=== PATIENT | female | born 2000 | race Hispanic/Latino ===

== ENCOUNTER 2018-09-07 09:26 | Emergency (ER) | payer SELFPAY ==
--- NOTE | 2018-09-07 10:40 | ER ---
Nurse's Notes [facility] Name: Brittany Concepcion Age: 17 yrs Sex: Female : 2000 Arrival Date: 09/07/2018 Time: 09:30 Bed 17 Private MD: Diagnosis: Otitis externa in other diseases classified elsewhere, right ear Presentation: 09/07 09:44 Presenting complaint: Patient states: "both of my ears have been draining for about a aa5 week but today my right ear hurts and I can't hear out of it". Transition of care: patient was not received from another setting of care. Onset of symptoms was September 07, 2018. Risk Assessment: Do you want to hurt yourself or someone else? Patient reports no desire to harm self or others. Initial Sepsis Screen: Does the patient meet any 2 criteria? No. Patient's initial sepsis screen is negative. Does the patient have a suspected source of infection? No. Patient's initial sepsis screen is negative. Care prior to arrival: None. 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 - Social history:: Smoking status: Patient/guardian denies using tobacco. - Ebola Screening: : No symptoms or risks identified at this time. Screenin:46 Abuse screen: Denies threats or abuse. Nutritional screening: No deficits noted. aa5 Tuberculosis screening: No symptoms or risk factors identified. Fall Risk None identified. Assessment: 09:46 General: Appears comfortable, Behavior is calm, cooperative. Pain: Complains of pain in aa5 right ear Pain does not radiate. Pain currently is 7 out of 10 on a pain scale. Quality of pain is described as aching, throbbing, Pain began this morning Is continuous. Neuro: Level of Consciousness is awake, alert, obeys commands, Oriented to person, place, time, situation. Cardiovascular: Heart tones S1 S2 present Rhythm is regular. Respiratory: Airway is patent Respiratory effort is even, unlabored, Respiratory pattern is regular, symmetrical. GI: No signs and/or symptoms were reported involving the gastrointestinal system. : No signs and/or symptoms were reported regarding the genitourinary system. EENT: Reports pain in right ear elayne ear drainage . Derm: Skin is pink, warm \\T\\ dry. Musculoskeletal: Range of motion: intact in all extremities. 11:15 Reassessment: Patient is alert, oriented x 3, equal unlabored respirations, skin aa5 warm/dry/pink. Vital Signs: 09:45 BP 111 / 76; Pulse 85; Resp 16 S; Temp 99.6(O); Pulse Ox 100% on R/A; Weight 43.09 kg aa5 (R); Height 5 ft. 2 in. (157.48 cm) (R); Pain 7/10; 09:45 Body Mass Index 17.38 (43.09 kg, 157.48 cm) aa5 ED Course: 09:30 Patient arrived in ED. mr 09:40 Lena Pulido RN is Primary Nurse. aa5 09:44 Arm band placed on Patient placed in an exam room, on a stretcher. aa5 09:44 Patient has correct armband on for positive identification. Bed in low position. Call aa5 light in reach. Side rails up X 1. 09:45 Triage completed. aa5 10:28 Bartolo Botello PA is PHCP. cp 10:28 Hemant Amaya MD is Attending Physician. cp 10:39 Latha Isaac MD is Referral Physician. cp 11:22 No provider procedures requiring assistance completed. Patient did not have IV access dm5 during this emergency room visit. Administered Medications: No medications were administered Outcome: 10:40 Discharge ordered by . cp 11:22 Discharged to home ambulatory. dm5 11:22 Condition: good 11:22 Discharge instructions given to patient, Instructed on discharge instructions, follow up and referral plans. medication usage, Demonstrated understanding of instructions, follow-up care, medications, Prescriptions given X 1. 11:23 Patient left the ED. dm5 Signatures: Gracia Gayle RN RN dm5 LewElvia mr Lena Pulido RN RN aa5 Bartolo Botello PA PA cp
--- NOTE | 2018-09-07 10:40 | EDPHYS ---
Physician Documentation [facility] Name: Brittany Concepcion Age: 17 yrs Sex: Female : 2000 Arrival Date: 09/07/2018 Time: 09:30 Bed 17 Private MD: ED Physician Hemant Amaya HPI: 09/07 10:34 This 17 yrs old Female presents to ER via Ambulatory with complaints of Ear cp Pain. 10:34 The patient presents with drainage, hearing loss, partial, pain. The complaints affect cp the right ear. Onset: The symptoms/episode began/occurred today. Associated signs and symptoms: Pertinent negatives: cough, fever, rhinorrhea, sinus trouble, sore throat. Severity of symptoms: in the emergency department the symptoms are unchanged despite home interventions. 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 - Social history:: Smoking status: Patient/guardian denies using tobacco. - Ebola Screening: : No symptoms or risks identified at this time. ROS: 10:34 Eyes: Negative for injury, pain, redness, and discharge. cp 10:34 Constitutional: Negative for body aches, chills, fever, poor PO intake. 10:34 ENT: Positive for drainage from ear(s), ear pain, hearing loss, Negative for sore throat, difficulty swallowing, difficulty handling secretions. 10:34 Respiratory: Negative for cough, shortness of breath, wheezing. 10:34 Abdomen/GI: Negative for abdominal pain, nausea, vomiting, and diarrhea. 10:34 Skin: Negative for cellulitis, rash. 10:34 Neuro: Negative for headache. 10:34 All other systems are negative. Exam: 10:36 Head/Face: Normocephalic, atraumatic. cp 10:36 Constitutional: The patient appears in no acute distress, alert, awake, non-toxic, well developed, well nourished. 10:36 Eyes: Periorbital structures: appear normal, Conjunctiva: normal, no exudate, no injection, Lids and lashes: appear normal, bilaterally. 10:36 ENT: External ear(s): pain with movement, that is mild, of the right ear canal, Ear canal(s): purulent discharge, that is minimal, in the right canal, TM's: dullness, bilaterally, Nose: is normal, Mouth: Lips: moist, Oral mucosa: pink and intact, moist, Posterior pharynx: Airway: no evidence of obstruction, patent, Voice: is normal. 10:36 Neck: ROM/movement: is normal, is supple, without pain, no range of motions limitations, no nuchal rigidity. 10:36 Chest/axilla: Inspection: normal. 10:36 Cardiovascular: Rate: normal, Rhythm: regular. 10:36 Respiratory: the patient does not display signs of respiratory distress, Respirations: normal, no use of accessory muscles, no retractions, no splinting, no tachypnea. 10:36 Skin: cellulitis, is not appreciated, no rash present. Vital Signs: 09:45 BP 111 / 76; Pulse 85; Resp 16 S; Temp 99.6(O); Pulse Ox 100% on R/A; Weight 43.09 kg aa5 (R); Height 5 ft. 2 in. (157.48 cm) (R); Pain 7/10; 09:45 Body Mass Index 17.38 (43.09 kg, 157.48 cm) aa5 MDM: 10:28 Patient medically screened. cp 10:39 Differential diagnosis: otitis media, otitis externa, ruptured TM, foreign body, cp cerumen impaction. Data reviewed: vital signs, nurses notes, and as a result, I will continue to observe the patient. Administered Medications: No medications were administered Disposition: 12:59 Co-signature as Attending Physician, Hemant Amaya MD I agree with the assessment and kdr plan of care. Disposition: 09/07/18 10:40 Discharged to Home. Impression: Otitis externa in other diseases classified elsewhere, right ear. - Condition is Stable. - Discharge Instructions: Otitis Externa. - Prescriptions for Cortisporin- TC 3.3-3-10-0.5 mg/mL Otic Drops, Suspension - instill 4 drops by OTIC route every 6 hours instill drops in affected ear as directed; 1 bottle. - Medication Reconciliation Form, Thank You Letter, Antibiotic Education, Prescription Opioid Use form. - Follow up: Latha Isaac MD; When: 1 week; Reason: symptoms continue. - Problem is new. - Symptoms are unchanged. Signatures: Gracia Gayle RN RN dm5 Hemant Amaya MD MD kdr Lena Pulido RN RN aa5 Bartolo Botello, PA PA cp Corrections: (The following items were deleted from the chart) 11:23 10:40 09/07/2018 10:40 Discharged to Home. Impression: Otitis externa in other diseases dm5 classified elsewhere, right ear. Condition is Stable. Forms are Medication Reconciliation Form, Thank You Letter, Antibiotic Education, Prescription Opioid Use. Follow up: Latha Isaac; When: 1 week; Reason: symptoms continue. Problem is new. Symptoms are unchanged. cp
== END 2018-09-07 11:23 | disposition home or self-care (01) ==
LOC: ER 09:26
DX: H60.91 Unspecified otitis externa, right ear (principal)
CPT/HCPCS: 99282

== ENCOUNTER 2019-04-07 01:10 | Emergency (ER) | payer OTHER, SELFPAY ==
--- NOTE | 2019-04-07 01:38 | ER ---
Nurse's Notes [facility] Name: Brittany Concepcion Age: 18 yrs Sex: Female : 2000 Arrival Date: 04/07/2019 Time: 01:14 Bed 16 Private MD: Diagnosis: Otitis media, unspecified, right ear Presentation: 04/07 01:33 Presenting complaint: Patient states: I started having an earache on the right side tl1 about 1 hour ago. I swam last week in the river. Transition of care: patient was not received from another setting of care. Onset of symptoms was April 07, 2019. Risk Assessment: Do you want to hurt yourself or someone else? Patient reports no desire to harm self or others. Initial Sepsis Screen: Does the patient meet any 2 criteria? No. Patient's initial sepsis screen is negative. Does the patient have a suspected source of infection? No. Patient's initial sepsis screen is negative. Care prior to arrival: None. 01:33 Method Of Arrival: Ambulatory tl1 01:33 Acuity: GLORIA 4 tl1 Triage Assessment: 01:27 General: Appears in no apparent distress. comfortable, Behavior is calm, cooperative, cc3 appropriate for age. Pain: Complains of pain in right ear. EENT: Reports pain in right ear. 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 - Social history:: Smoking status: Patient/guardian denies using tobacco, never smoked. - Ebola Screening: : Patient negative for fever greater than or equal to 101.5 degrees Fahrenheit, and additional compatible Ebola Virus Disease symptoms Patient denies exposure to infectious person Patient denies travel to an Ebola-affected area in the 21 days before illness onset. Screenin:27 Abuse screen: Denies threats or abuse. Denies injuries from another. Nutritional cc3 screening: No deficits noted. Tuberculosis screening: No symptoms or risk factors identified. Fall Risk Ambulatory Aid- None/Bed Rest/Nurse Assist (0 pts). Gait- Normal/Bed Rest/Wheelchair (0 pts) Mental Status- Oriented to own ability (0 pts). Assessment: 01:27 General: Appears in no apparent distress. comfortable, Behavior is calm, cooperative, cc3 appropriate for age. Pain: Complains of pain in right ear. Neuro: Level of Consciousness is awake, alert, obeys commands, Oriented to person, place, time, situation, Appropriate for age. Cardiovascular: Denies chest pain, Capillary refill < 3 seconds Patient's skin is warm and dry. Respiratory: Airway is patent Respiratory effort is even, unlabored, Respiratory pattern is regular, symmetrical. GI: Abdomen is flat. : No signs and/or symptoms were reported regarding the genitourinary system. EENT: Reports pain in right ear. Derm: Skin is intact, is healthy with good turgor, Skin is pink, warm \T\ dry. normal. Musculoskeletal: Circulation, motion, and sensation intact. Range of motion: intact in all extremities. 01:55 Reassessment: Patient appears in no apparent distress at this time. Patient and/or cc3 family updated on plan of care and expected duration. Pain level reassessed. Patient is alert, oriented x 3, equal unlabored respirations, skin warm/dry/pink. ANASTASIA Botello discharged the patient home with prescription given. No IV cannula in situ. Patient left ER vitally stable and ambulatory with her friend. No valuables left in the patient's room. Patient denies pain at this time. Patient states feeling better. Patient states symptoms have improved. Vital Signs: 01:35 BP 116 / 77; Pulse 89; Resp 17; Temp 98.5; Pulse Ox 100% ; Weight 53.52 kg; Height 5 tl1 ft. 2 in. (157.48 cm); Pain 6/10; 01:35 Body Mass Index 21.58 (53.52 kg, 157.48 cm) tl1 ED Course: 01:14 Patient arrived in ED. mr 01:23 Bartolo Botello PA is PHCP. cp 01:23 Igor Rachel MD is Attending Physician. cp 01:27 Aurelia Baptiste is Primary Nurse. cc3 01:27 Patient has correct armband on for positive identification. Bed in low position. Call cc3 light in reach. Side rails up X 1. Pulse ox on. NIBP on. 01:34 Triage completed. tl1 01:36 Arm band placed on right wrist. tl1 01:55 No provider procedures requiring assistance completed. Patient did not have IV access cc3 during this emergency room visit. Administered Medications: 01:45 Drug: Tylenol 1000 mg Route: PO; cc3 01:55 Follow up: Response: No adverse reaction cc3 01:45 Drug: Augmentin 875 mg Route: PO; cc3 01:55 Follow up: Response: No adverse reaction cc3 Outcome: 01:37 Discharge ordered by MD. cp 01:55 Discharged to home ambulatory, with friend. cc3 01:55 Condition: stable 01:55 Discharge instructions given to patient, Instructed on discharge instructions, follow up and referral plans. medication usage, Demonstrated understanding of instructions, follow-up care, medications, Prescriptions given X 1. 01:59 Patient left the ED. cc3 Signatures: Elvia Lew mr VinsonSubha, RN RN tl1 Bartolo Botello PA PA cp Cordel, Charlene cc3 Corrections: (The following items were deleted from the chart) 01:36 01:35 BP 116 / 77; Resp 17bpm; Pulse Ox 100%; Temp 98.5F; 53.52 kg; Height 5 ft. 2 in.; tl1 BMI: 21.5; Pain 6/10; tl1
--- NOTE | 2019-04-07 01:38 | EDPHYS ---
Physician Documentation [facility] Name: Brittany Concepcion Age: 18 yrs Sex: Female : 2000 Arrival Date: 04/07/2019 Time: 01:14 Bed 16 Private MD: ED Physician Igor Rachel HPI: 04/07 01:31 This 18 yrs old Female presents to ER via Unassigned with complaints of Ear cp Pain. 01:31 The patient presents with hearing loss, partial, pain, that is acute. The complaints cp affect the right ear. Onset: The symptoms/episode began/occurred tonight. Associated signs and symptoms: Pertinent negatives: cough, fever, sinus trouble, sore throat, vertigo, vomiting. Severity of symptoms: in the emergency department the symptoms are unchanged despite home interventions. 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 - Social history:: Smoking status: Patient/guardian denies using tobacco, never smoked. - Ebola Screening: : Patient negative for fever greater than or equal to 101.5 degrees Fahrenheit, and additional compatible Ebola Virus Disease symptoms Patient denies exposure to infectious person Patient denies travel to an Ebola-affected area in the 21 days before illness onset. ROS: 01:32 Eyes: Negative for injury, pain, redness, and discharge. cp 01:32 Constitutional: Negative for body aches, chills, fever, poor PO intake. 01:32 ENT: Positive for ear pain, Negative for drainage from ear(s), sinus congestion, sinus pain, sore throat, difficulty swallowing, difficulty handling secretions. 01:32 Respiratory: Negative for cough, shortness of breath, wheezing. 01:32 Abdomen/GI: Negative for abdominal pain, nausea, vomiting, diarrhea, constipation. 01:32 Skin: Negative for cellulitis, rash. 01:32 Neuro: Negative for altered mental status, headache, weakness. 01:32 All other systems are negative. Exam: 01:34 Head/Face: Normocephalic, atraumatic. cp 01:34 Constitutional: The patient appears in no acute distress, alert, awake, non-toxic, well developed, well nourished. 01:34 Eyes: Periorbital structures: appear normal, Conjunctiva: normal, no exudate, no injection, Lids and lashes: appear normal, bilaterally. 01:34 ENT: External ear(s): are unremarkable, Ear canal(s): are normal, clear, TM's: bulging, on the right, erythema, that is moderate, on the right, Examination of the other ear shows no obvious abnormality, Nose: is normal, Mouth: Lips: moist, Oral mucosa: pink and intact, moist, Posterior pharynx: Airway: no evidence of obstruction, patent, Voice: is normal. 01:34 Neck: ROM/movement: is normal, is supple, without pain, no range of motions limitations, no meningismus, no nuchal rigidity, Lymph nodes: no appreciated lymphadenopathy. 01:34 Chest/axilla: Inspection: normal. 01:34 Skin: no rash present. Vital Signs: 01:35 BP 116 / 77; Pulse 89; Resp 17; Temp 98.5; Pulse Ox 100% ; Weight 53.52 kg; Height 5 tl1 ft. 2 in. (157.48 cm); Pain 6/10; 01:35 Body Mass Index 21.58 (53.52 kg, 157.48 cm) tl1 MDM: 01:25 Patient medically screened. cp 01:36 Data reviewed: vital signs, nurses notes, and as a result, I will discharge patient. cp Counseling: I had a detailed discussion with the patient and/or guardian regarding: the historical points, exam findings, and any diagnostic results supporting the discharge/admit diagnosis, to return to the emergency department if symptoms worsen or persist or if there are any questions or concerns that arise at home. Administered Medications: 01:45 Drug: Tylenol 1000 mg Route: PO; cc3 01:55 Follow up: Response: No adverse reaction cc3 01:45 Drug: Augmentin 875 mg Route: PO; cc3 01:55 Follow up: Response: No adverse reaction cc3 Disposition: 04:00 Co-signature as Attending Physician, Igor Rachel MD. Disposition: 04/07/19 01:37 Discharged to Home. Impression: Otitis media, unspecified, right ear. - Condition is Stable. - Discharge Instructions: Otitis Media, Adult. - Prescriptions for Amoxicillin 875 mg Oral Tablet - take 1 tablet by ORAL route every 12 hours for 10 days; 20 tablet. - Medication Reconciliation Form, Thank You Letter, Antibiotic Education, Prescription Opioid Use form. - Follow up: Private Physician; When: 2 - 3 days; Reason: Worsening of condition. - Problem is new. - Symptoms have improved. Signatures: Subha Vinson RN RN tl1 Bartolo Botello PA PA cp Igor Rachel MD MD Aurelia Baptiste cc3 Corrections: (The following items were deleted from the chart) 01:59 01:37 04/07/2019 01:37 Discharged to Home. Impression: Otitis media, unspecified, right cc3 ear. Condition is Stable. Forms are Medication Reconciliation Form, Thank You Letter, Antibiotic Education, Prescription Opioid Use. Follow up: Private Physician; When: 2 - 3 days; Reason: Worsening of condition. Problem is new. Symptoms have improved. cp
[2019-04-07] MEDS ORDERED: AMOX/K CLAV 875 MG TAB ONE (02:02)
[2019-04-07] MEDS ORDERED: ACETAMINOPHEN 500 MG TAB ONE (02:02)
== END 2019-04-07 01:59 | disposition home or self-care (01) ==
LOC: ER 01:10
DX: H66.91 Otitis media, unspecified, right ear (principal)
CPT/HCPCS: 99283

== ENCOUNTER 2019-04-09 18:54 | Emergency (ER) | payer OTHER ==
--- NOTE | 2019-04-09 19:15 | ER ---
Nurse's Notes [facility] Name: Brittany Concepcion Age: 18 yrs Sex: Female : 2000 Arrival Date: 04/09/2019 Time: 18:56 Bed 13 Private MD: Diagnosis: Bilat otitis externa;Bilat otits media Presentation: 04/09 18:58 Presenting complaint: Patient states: elayne ear pain. Pt states "I was seen here a few aa5 days ago and it was only my right ear hurting and I've been taking the antibiotics". Transition of care: patient was not received from another setting of care. Onset of symptoms was March 2019. Risk Assessment: Do you want to hurt yourself or someone else? Patient reports no desire to harm self or others. Initial Sepsis Screen: Does the patient meet any 2 criteria? No. Patient's initial sepsis screen is negative. Does the patient have a suspected source of infection? No. Patient's initial sepsis screen is negative. Care prior to arrival: None. 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 - Social history:: Smoking status: Patient/guardian denies using tobacco. - Ebola Screening: : No symptoms or risks identified at this time. Screenin:38 Abuse screen: Denies threats or abuse. Nutritional screening: No deficits noted. jb4 Tuberculosis screening: No symptoms or risk factors identified. Fall Risk None identified. Assessment: 19:30 General: Appears in no apparent distress. uncomfortable, Behavior is calm, cooperative, jb4 appropriate for age. Pain: Complains of pain in right ear and left ear Pain does not radiate. Pain currently is 9 out of 10 on a pain scale. Quality of pain is described as it just hurts. Pain began 1 day ago. Is continuous. Neuro: Level of Consciousness is awake, alert, obeys commands, Oriented to person, place, time, situation. Cardiovascular: Patient's skin is warm and dry. Respiratory: Airway is patent Respiratory effort is even, unlabored, Respiratory pattern is regular, symmetrical. GI: No signs and/or symptoms were reported involving the gastrointestinal system. : No signs and/or symptoms were reported regarding the genitourinary system. EENT: Ear canal clear on left ear and right ear. Derm: Skin is intact, Skin is pink, warm \\T\\ dry. Musculoskeletal: Circulation, motion, and sensation intact. 19:38 Reassessment: Patient appears in no apparent distress at this time. Patient and/or jb4 family updated on plan of care and expected duration. Pain level reassessed. Pt ambulated out of ED with family, steady gait, verbalized understanding of d/c and follow up instructions, given a list of primary providers in the area. Vital Signs: 19:00 BP 120 / 69; Pulse 119; Resp 20 S; Temp 100.9(O); Pulse Ox 98% on R/A; Weight 53.52 kg aa5 (R); Pain 9/10; ED Course: 18:56 Patient arrived in ED. rg4 18:57 Naseem Valentin MD is Attending Physician. ps1 18:58 Arm band placed on. aa5 18:59 Triage completed. aa5 19:19 Bobby Wright RN is Primary Nurse. jb4 19:38 Patient has correct armband on for positive identification. Bed in low position. Call jb4 light in reach. 19:38 No provider procedures requiring assistance completed. Patient did not have IV access jb4 during this emergency room visit. Administered Medications: 19:35 Drug: Motrin 600 mg Route: PO; jb4 19:36 Follow up: Response: Medication administered at discharge. jb4 19:36 Drug: Decadron 10 mg Route: PO; jb4 19:36 Follow up: Response: Medication administered at discharge. jb4 Outcome: 19:14 Discharge ordered by MD. ps1 19:38 Discharged to home ambulatory, with family. jb4 19:38 Condition: stable 19:38 Discharge instructions given to patient, family, Instructed on discharge instructions, follow up and referral plans. medication usage, Demonstrated understanding of instructions, follow-up care, medications, Prescriptions given X 2. 19:39 Patient left the ED. jb4 Signatures: Lena Pulido RN RN aa5 Cristiana Garza 4 Bobby Wright RN RN jb4 Valentin, Naseem, MD MD ps1
--- NOTE | 2019-04-09 19:15 | EDPHYS ---
Physician Documentation [facility] Name: Brittany Concepcion Age: 18 yrs Sex: Female : 2000 Arrival Date: 04/09/2019 Time: 18:56 Bed 13 Private MD: ED Physician Naseem Valentin HPI: 04/09 19:09 This 18 yrs old Female presents to ER via Ambulatory with complaints of Ear ps1 Pain. 19:09 patient was seen and evaluated for right ear pain a couple of days ago and was treated ps1 with Amox. She has taken the medications as prescribed. She started to have left ear pain and swelling of the canal bilaterally. Pain is rated as moderate. No fluid drainage from ear. No fever per patient but febrile in ED. Taking tylenol at home for pain which does not help much. . 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 - Social history:: Smoking status: Patient/guardian denies using tobacco. - Ebola Screening: : No symptoms or risks identified at this time. ROS: 19:09 Constitutional: Negative for fever, chills, and weight loss, Eyes: Negative for injury, ps1 pain, redness, and discharge, Cardiovascular: Negative for chest pain, palpitations, and edema, Respiratory: Negative for shortness of breath, cough, wheezing, and pleuritic chest pain, Abdomen/GI: Negative for abdominal pain, nausea, vomiting, diarrhea, and constipation, MS/Extremity: Negative for injury and deformity, Skin: Negative for injury, rash, and discoloration, Neuro: Negative for headache, weakness, numbness, tingling, and seizure. 19:09 ENT: Positive for ear pain. Exam: 19:09 Constitutional: This is a well developed, well nourished patient who is awake, alert, ps1 and in no acute distress. Head/Face: Normocephalic, atraumatic. Eyes: Pupils equal round and reactive to light, extra-ocular motions intact. Lids and lashes normal. Conjunctiva and sclera are non-icteric and not injected. Cardiovascular: Regular rate and rhythm. No gallops, murmurs, or rubs. Normal PMI, no JVD. No pulse deficits. Respiratory: Lungs have equal breath sounds bilaterally, clear to auscultation and percussion. No rales, rhonchi or wheezes noted. No increased work of breathing, no retractions or nasal flaring. Skin: Warm, dry with normal turgor. Normal color with no rashes, no lesions, and no evidence of cellulitis. MS/ Extremity: Pulses equal, no cyanosis. Neurovascular intact. Full, normal range of motion. 19:09 ENT: External ear(s): pain with movement, bilaterally, swelling, that is moderate, bilaterally, Ear canal(s): swelling, that is moderate, bilaterally, TM's: bulging, on the right. Vital Signs: 19:00 BP 120 / 69; Pulse 119; Resp 20 S; Temp 100.9(O); Pulse Ox 98% on R/A; Weight 53.52 kg aa5 (R); Pain 9/10; MDM: 19:09 Data reviewed: vital signs, nurses notes. ED course: continue taking amox. will add ps1 ciprodex and steroids in ED. Anaprox for pain. . 19:14 Patient medically screened. ps1 Administered Medications: 19:35 Drug: Motrin 600 mg Route: PO; [facility] 19:36 Follow up: Response: Medication administered at discharge. [facility] 19:36 Drug: Decadron 10 mg Route: PO; [facility] 19:36 Follow up: Response: Medication administered at discharge. [facility] Disposition: 04/09/19 19:14 Discharged to Home. Impression: Bilat otitis externa, Bilat otits media. - Condition is Stable. - Discharge Instructions: Otitis Externa, [id number]. - Prescriptions for Anaprox DS 550 mg Oral Tablet - take 1 tablet by ORAL route every 12 hours As needed; 20 tablet. Ciprodex 0.3- 0.1 % Otic Drops, Suspension - instill 4 drop by OTIC route every 12 hours for 7 days , for ears ONLY; 1 Container. - Medication Reconciliation Form, Thank You Letter, Antibiotic Education, Prescription Opioid Use form. - Follow up: Emergency Department; When: As needed; Reason: Fever > 102 F, Worsening of condition. Follow up: Private Physician; When: As needed; Reason: Recheck today's complaints, Continuance of care. - Problem is an ongoing problem. - Symptoms have worsened. Signatures: Lena Pulido RN RN aa5 Bobby Wright RN RN jb4 Naseem Valentin MD MD ps1 Corrections: (The following items were deleted from the chart) 19:39 19:14 04/09/2019 19:14 Discharged to Home. Impression: Bilat otitis externa; Bilat jb4 otits media. Condition is Stable. Forms are Medication Reconciliation Form, Thank You Letter, Antibiotic Education, Prescription Opioid Use. Follow up: Emergency Department; When: As needed; Reason: Fever > 102 F, Worsening of condition. Follow up: Private Physician; When: As needed; Reason: Recheck today's complaints, Continuance of care. Problem is an ongoing problem. Symptoms have worsened. ps1
[2019-04-09] MEDS ORDERED: IBUPROFEN 200 MG TAB PO ONE (19:39)
[2019-04-09] MEDS ORDERED: dexAMETHasone 4 MG TAB ONE (19:40)
== END 2019-04-09 19:39 | disposition home or self-care (01) ==
LOC: ER 18:54
DX: H60.93 Unspecified otitis externa, bilateral (principal); H66.93 Otitis media, unspecified, bilateral
CPT/HCPCS: 99283

== ENCOUNTER 2021-12-17 22:19 | Emergency (ER) | payer OTHER, SELFPAY ==
[2021-12-18] MEDS ORDERED: KETOROLAC 30 MG/ML INJ ONE (00:24)
--- NOTE | 2021-12-18 00:25 | ER ---
Nurse's Notes [facility] Name: Brittany Concepcion Age: 21 yrs Sex: Female : 2000 Arrival Date: 12/17/2021 Time: 22:20 Bed 7 Private MD: Diagnosis: Migraine without aura, not intractable Presentation: 12/17 22:29 Chief complaint: Patient states: for the last few weeks " I've had left sided neck ss7 pain." The past couple of days she has had tingling in the left side of her head. "feels like pins and needles." Prior to arrival the "pins and needles" moved to right side of head for approx. 20 minutes. Coronavirus screen: Vaccine status: Patient reports receiving the 2nd dose of the covid vaccine. Ebola Screen: No symptoms or risks identified at this time. Initial Sepsis Screen: Does the patient meet any 2 criteria? No. Patient's initial sepsis screen is negative. Does the patient have a suspected source of infection? No. Patient's initial sepsis screen is negative. Risk Assessment: Do you want to hurt yourself or someone else? Patient reports no desire to harm self or others. Onset of symptoms was November 26, 2021. 22:29 Method Of Arrival: Ambulatory 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 - Social history:: Smoking status: Patient denies any tobacco usage or history of. Screenin:07 Abuse screen: Denies threats or abuse. Denies injuries from another. Nutritional lp1 screening: No deficits noted. Tuberculosis screening: No symptoms or risk factors identified. Fall Risk None identified. Assessment: 23:05 General: Appears in no apparent distress. Behavior is calm, cooperative. Pain: lp1 Complains of pain in left mid cervical area and left trapezius. Neuro: Level of Consciousness is awake, alert, obeys commands, Oriented to person, place, time, situation, Gait is steady, Intact Reports paresthesias in left base of the skull and left occipital area and left temporal area. Cardiovascular: Patient's skin is warm and dry. Respiratory: Respiratory effort is even, unlabored. GI: No signs and/or symptoms were reported involving the gastrointestinal system. : No signs and/or symptoms were reported regarding the genitourinary system. EENT: No signs and/or symptoms were reported regarding the EENT system. Derm: Skin is pink, warm \\T\\ dry. Musculoskeletal: Circulation, motion, and sensation intact. Range of motion: intact in all extremities. 12/18 00:20 Reassessment: Provider at bedside to discuss results with patient and mother at bedside.lp1 Vital Signs: 12/17 22:31 BP 114 / 91; Pulse 84; Resp 20; Temp 97.1(TE); Pulse Ox 99% ; Weight 52.16 kg; Height 5 ss7 ft. 2 in. (157.48 cm); 22:31 Body Mass Index 21.03 (52.16 kg, 157.48 cm) 7 ED Course: 22:20 Patient arrived in ED. ag3 22:31 Triage completed. ss7 22:31 Arm band placed on right wrist. ss7 22:34 Maximus Santos PA is PHCP. jr8 22:34 Bartolo Payne MD is Attending Physician. jr8 23:05 Mitzi Seymour, RN is Primary Nurse. lp1 23:07 Patient has correct armband on for positive identification. lp1 23:30 CT Head Brain wo Cont In Process Unspecified. EDMS 12/18 00:29 No provider procedures requiring assistance completed. Patient did not have IV access lp1 during this emergency room visit. Administered Medications: 00:25 Drug: Ketorolac 30 mg Route: IM; Site: right gluteus; lp1 00:40 Follow up: Response: No adverse reaction lp1 Outcome: 00:25 Discharge ordered by . jr8 00:40 Discharged to home ambulatory, with family. lp1 00:40 Condition: good 00:40 Discharge instructions given to patient, family, Instructed on discharge instructions, follow up and referral plans. medication usage, Demonstrated understanding of instructions, follow-up care, medications, Prescriptions given X 1. 00:41 Patient left the ED. lp1 Signatures: Dispatcher [employer] Mitzi Bishop, RN RN lp1 Maximus Santos PA PA jr8 Claudia Mc 3 Rosenda Alvarez RN RN ss7 Corrections: (The following items were deleted from the chart) 00:30 00:30 Reassessment: Provider at bedside to discuss results with patient and mother at lp1 bedside lp1
--- NOTE | 2021-12-18 00:25 | EDPHYS ---
Physician Documentation [facility] Name: Brittany Concepcion Age: 21 yrs Sex: Female : 2000 Arrival Date: 12/17/2021 Time: 22:20 Bed 7 Private MD: ED Physician Bartolo Payne HPI: 12/17 22:50 This 21 yrs old Female presents to ER via Ambulatory with complaints of jr8 Headache. 22:50 The patient complains of pain to the left side of the back of head, left temporal area, jr8 left occipital area and left base of the skull. The patient describes the headache as constant. Onset: The symptoms/episode began/occurred gradually, 3 week(s) ago, and became worse and became persistent. Associated signs and symptoms: The patient has no apparent associated signs or symptoms. Severity of symptoms: At its worst the pain was mild, in the emergency department the pain is unchanged. Headache History: Denies prior headaches. The patient has not experienced similar symptoms in the past. The patient has not recently seen a physician. Patient stated that she started with left-sided neck pain that is now evolved into having pain to the left side of her head. Stated that she feels like she has a vibration sense inside her head. Denies any head or neck trauma. Denies any photophobia, nausea or any other symptoms at this time.. 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 - Social history:: Smoking status: Patient denies any tobacco usage or history of. ROS: 22:50 Eyes: Negative for injury, pain, redness, and discharge, ENT: Negative for injury, jr8 pain, and discharge, Cardiovascular: Negative for chest pain, palpitations, and edema, Respiratory: Negative for shortness of breath, cough, wheezing, and pleuritic chest pain, Abdomen/GI: Negative for abdominal pain, nausea, vomiting, diarrhea, and constipation, Back: Negative for injury and pain, MS/Extremity: Negative for injury and deformity, Skin: Negative for injury, rash, and discoloration. 22:50 Neck: Positive for pain with movement, pain at rest, Negative for stiffness, swollen nodes, tenderness, bony tenderness. 22:50 Neuro: Positive for headache. Exam: 22:50 Constitutional: This is a well developed, well nourished patient who is awake, alert, jr8 and in no acute distress. Eyes: Pupils equal round and reactive to light, extra-ocular motions intact. Lids and lashes normal. Conjunctiva and sclera are non-icteric and not injected. Cornea within normal limits. Periorbital areas with no swelling, redness, or edema. ENT: Nares patent. No nasal discharge, no septal abnormalities noted. Tympanic membranes are normal and external auditory canals are clear. Oropharynx with no redness, swelling, or masses, exudates, or evidence of obstruction, uvula midline. Mucous membranes moist. Neck: Trachea midline, no thyromegaly or masses palpated, and no cervical lymphadenopathy. Supple, full range of motion without nuchal rigidity, or vertebral point tenderness. No Meningismus. Cardiovascular: Regular rate and rhythm with a normal S1 and S2. No gallops, murmurs, or rubs. Normal PMI, no JVD. No pulse deficits. Respiratory: Lungs have equal breath sounds bilaterally, clear to auscultation and percussion. No rales, rhonchi or wheezes noted. No increased work of breathing, no retractions or nasal flaring. Abdomen/GI: Soft, non-tender, with normal bowel sounds. No distension or tympany. No guarding or rebound. No evidence of tenderness throughout. Skin: Warm, dry with normal turgor. Normal color with no rashes, no lesions, and no evidence of cellulitis. MS/ Extremity: Pulses equal, no cyanosis. Neurovascular intact. Full, normal range of motion. Neuro: Awake and alert, GCS 15, oriented to person, place, time, and situation. Cranial nerves II-XII grossly intact. Motor strength 5/5 in all extremities. Sensory grossly intact. Cerebellar exam normal. Normal gait. Vital Signs: 22:31 BP 114 / 91; Pulse 84; Resp 20; Temp 97.1(TE); Pulse Ox 99% ; Weight 52.16 kg; Height 5 ss7 ft. 2 in. (157.48 cm); 22:31 Body Mass Index 21.03 (52.16 kg, 157.48 cm) 7 MDM: 22:35 Patient medically screened. [facility] 12/18 00:23 Data reviewed: vital signs, nurses notes, radiologic studies, CT scan, and as a result, jr8 I will discharge patient. Data interpreted: Pulse oximetry: on room air is 99 %. Interpretation: normal. Counseling: I had a detailed discussion with the patient and/or guardian regarding: the historical points, exam findings, and any diagnostic results supporting the discharge/admit diagnosis, radiology results, the need for outpatient follow up, a family practitioner, to return to the emergency department if symptoms worsen or persist or if there are any questions or concerns that arise at home. Response to treatment: the patient's symptoms have mildly improved after treatment. ED course: Discussed with patient there was no acute findings intracranially on the CT scan. Most likely this is tension related and will trial her on Toradol and sent her home on anti-inflammatory. If were to worsen or change to come back for further evaluation otherwise and see primary care for further follow-up.. 12/17 22:48 Order name: CT Head Brain wo Cont jr8 Administered Medications: 00:25 Drug: Ketorolac 30 mg Route: IM; Site: right gluteus; lp1 00:40 Follow up: Response: No adverse reaction lp1 Disposition: 05:39 Co-signature as Attending Physician, Bartolo Payne MD I agree with the assessment and [facility] plan of care. Disposition Summary: 12/18/21 00:25 Discharge Ordered Location: Home jr8 Problem: new jr8 Symptoms: have improved jr8 Condition: Stable jr8 Diagnosis - Migraine without aura, not intractable jr8 Followup: jr8 - With: Private Physician - When: 2 - 3 days - Reason: Recheck today's complaints, Continuance of care, Re-evaluation by your physician Discharge Instructions: - Discharge Summary Sheet jr8 - Migraine Headache jr8 Forms: - Medication Reconciliation Form jr8 - Thank You Letter jr8 - Antibiotic Education jr8 - Prescription Opioid Use jr8 Prescriptions: - Ibuprofen 800 mg Oral Tablet - take 1 tablet by ORAL route every 12 hours As needed take with food; 20 tablet; jr8 Refills: 0, Product Selection Permitted Signatures: Dispatcher [employer] Bartolo Hayes MD MD cha Pena, Laura RN RN lp1 Maximus Snatos PA PA jr8 Rosenda Alvarez, RN RN ss7
[2021-12-18 01:48] VITALS: BP 114/91; TEMP 97.1; O2SAT 99
--- NOTE | 2021-12-18 11:44 | RAD REPORT ---
EXAM DESCRIPTION: CT - Head Brain Wo Cont - 12/18/2021 2:26 am CLINICAL HISTORY: HEADACHE. TECHNIQUE: Noncontrast CT through the head was performed. Axial, coronal, and sagittal reconstructio ns were created and sent to PACS. This exam was performed according to our departmental dose-optimiza tion program which includes use of Automated Exposure Control, adjustment of the mA and/or kV accordi ng to patient size and/or use of iterative reconstruction technique. COMPARISON: CT head from December 21, 2016. FINDINGS: The brain parenchyma appears unremarkable. There is no intra-axial or extra-axial bleed se en. There is no mass or mass effect. The ventricles are unremarkable. The orbital contents appear unr emarkable. The visualized paranasal sinuses and mastoid air cells are patent. No acute fracture is identified. IMPRESSION: No acute intracranial abnormality identified. Electronically signed by: Jamila Lozano MD 12/17/2021 11:53 PM CDT Due to temporary technical issues with the PACS/Fluency reporting system, reports are being signed by the in house radiologist without review as a courtesy to ensure prompt reporting. The interpreting r adiologist is fully responsible for the content of the report.
== END 2021-12-18 00:41 | disposition home or self-care (01) ==
LOC: ER 22:19
DX: G43.009 Migraine without aura, not intractable, without status migrainosus (principal)
CPT/HCPCS: 70450; 96372; 99283

== ENCOUNTER 2025-07-03 08:32 | Emergency (ER) | payer SELFPAY ==
--- OUTSIDE RECORDS SUMMARY | 2025-07-03 08:35 | XMS REPORT | Continuity of Care Document ---
Author Name Unknown Address [address] [facility] [place] [address] [facility] [place] Address [address] [facility] [place] [address] Care Team Providers Care Living Specialist Name Role Phone No, PCP Attending Clinician Unavailable Payers Payer Name Policy Type Policy Number Effective Date Expiration Date Source [facility] 6 [id number] [place] [facility] Social History Social Habit Start Date Stop Date Quantity Comments Source History of Tobacco Use [facility] Sex Assigned At [facility] Smoking Status Start Date Stop Date Source Never Smoker [place] [facility] Medications Ordered Medication Name Filled Medication Name Start Date Stop Date Current Medication? Ordering Clinician Indication Dosage Frequency Signature (SIG) Comments Components Source Terbinafine HCl 250 MG Terbinafine HCl 250 MG 01-04 00:00: 00 No 1{table t} QD Terbinafin e HCl 250 MG Encounters Start Date/Time End Date/Time Encounter Type Admission Type Attending Clinicians Care Facility Care Department Encounter ID Source 2024-04-05 13:39:01 Outpatient No, PCP YOLANDA GUERRERO [id number] [place] [facility] 2024-04-05 00:00:00 2024-04-05 00:00:00 (F/U) Follow Up Visit [facility] [id number] [place] [facility]
[2025-07-03] MEDS ORDERED: predniSONE 20 MG TAB ONE (08:36)
[2025-07-03] MEDS ORDERED: HYDROCODONE/APAP 5/325 MG TAB ONE (08:36)
--- NOTE | 2025-07-03 08:41 | EDPHYS ---
Physician Documentation [facility] Name: Brittany Concepcion Age: 24 yrs Sex: Female : 2000 Arrival Date: 07/03/2025 Time: 08:32 Bed 11 Private MD: ED Physician Rodri Nieves HPI: 07/03 08:48 This 24 yrs old Female presents to ER via Ambulatory with complaints of Stiff kb Neck. 08:48 Pt is a 24 year old female who presents for stiffness to neck that started upon waking kb this morning at 0330. States she has had cricks in her neck in the past, but this time the pain radiates down her arm so she wanted to get it checked out. Denies injury or trauma. . Historical: - Allergies: 08:42 No Known Allergies; iw - Home Meds: 08:42 None [Active]; iw - PMHx: 08:42 None; iw - PSHx: 08:42 None; iw - Infectious Disease History:: Denies. - Social history:: Smoking status: Patient denies any tobacco usage or history of. ROS: 08:47 Constitutional: As per HPI kb Exam: 08:47 Constitutional: This is a well developed, well nourished patient who is awake, alert, kb and in no acute distress. Head/Face: Normocephalic, atraumatic. ENT: Moist Mucous membranes Cardiovascular: Regular rate Respiratory: Respirations even and unlabored. No increased work of breathing. Talking in full sentences Skin: Warm, dry with normal turgor. Normal color. MS/ Extremity: Pulses equal, no cyanosis. Neurovascular intact. Full, normal range of motion. Neuro: Awake and alert, GCS 15, oriented to person, place, time, and situation. 08:47 Neck: External neck: tenderness, that is mild, of the right mid cervical area and right trapezius, C-spine: appears grossly normal, no vertebral tenderness, no crepitus, ROM/movement: pain, that is moderate, with rotation to the right, Vital Signs: 08:42 BP 122 / 79; Pulse 66; Resp 16; Temp 98.4; Pulse Ox 100% on R/A; iw MDM: 08:35 Medical Screening Exam initiated kb 08:46 Differential diagnosis: C-Spine Fracture Cervical Raiculopathy cervical strain, kb torticollis. Data reviewed: vital signs, nurses notes. Test considered but Not performed: X-ray: xray cervical spine considered but pt has no bony tenderness, no injury. Counseling: I had a detailed discussion with the patient and/or guardian regarding the historical points, exam findings, and any diagnostic results supporting the discharge/admit diagnosis, the need for outpatient follow up, a family practitioner, to return to the emergency department if symptoms worsen or persist or if there are any questions or concerns that arise at home. Administered Medications: 08:51 Drug: predniSONE PO 40 mg PO once Route: PO; iw 08:56 Follow up: Response: No adverse reaction iw 08:51 Drug: HYDROcodone-acetaminophen PO 5 mg-325 mg 1 tabs PO once Route: PO; iw 08:56 Follow up: Response: No adverse reaction iw Disposition: 14:53 I was immediately available on-site in the Emergency Department for consultation in the ms3 care of the patient. Disposition Summary: 07/03/25 08:41 Discharge Ordered Notes: Location: Home kb Condition: Stable kb Diagnosis - Radiculopathy, cervical region kb Followup: kb - With: Emergency Department - When: As needed - Reason: Worsening of condition Followup: kb - With: Private Physician - When: 2 - 3 days - Reason: Recheck today's complaints, Continuance of care, Re-evaluation by your physician Discharge Instructions: - Discharge Summary Sheet kb - Cervical Radiculopathy, [id number] kb Forms: - Medication Reconciliation Form kb - Antibiotic Education kb - Prescription Opioid Use kb - Patient Portal Instructions kb - Leadership Thank You Letter kb - Work release form iw Prescriptions: - Ibuprofen 600 mg Oral Tablet - take 1 tablet ORAL route every 6 hours As needed take with food; 30 tablet; kb Refills: 0, Product Selection Permitted - Prednisone 20 mg Oral Tablet - take 1 tablet ORAL route once daily for 5 days; 5 tablet; Refills: 0, Product kb Selection Permitted - orphenadrine citrate 100 mg Oral Tablet Sustained Release - take 1 tablet ORAL route 2 times per day As needed; 20 tablet; Refills: 0, kb Product Selection Permitted Signatures: Daily Cavazos, JUNE JOYCE-Lucretia Flores RN RN Rodri Carney DO DO ms3
--- NOTE | 2025-07-03 08:57 | ER ---
Nurse's Notes [facility] Name: Brittany Concepcion Age: 24 yrs Sex: Female : 2000 Arrival Date: 07/03/2025 Time: 08:32 Bed 11 Private MD: Diagnosis: Radiculopathy, cervical region Presentation: 07/03 08:42 Chief complaint: Patient states: pain to right side of neck since waking up today at iw 0330. Coronavirus screen: At this time, the client does not indicate any symptoms associated with coronavirus-19. Ebola Screen: No symptoms or risks identified at this time. Initial Sepsis Screen: Does the patient meet any 2 criteria? No. Patient's initial sepsis screen is negative. Does the patient have a suspected source of infection? No. Patient's initial sepsis screen is negative. Risk Assessment: Do you want to hurt yourself or someone else? Patient reports no desire to harm self or others. Onset of symptoms was July 03, 2025. 08:42 Method Of Arrival: Ambulatory iw 08:42 Acuity: GLORIA 4 iw Triage Assessment: 08:50 General: Appears in no apparent distress. Behavior is calm, cooperative. iw Historical: - Allergies: 08:42 No Known Allergies; iw - Home Meds: 08:42 None [Active]; iw - PMHx: 08:42 None; iw - PSHx: 08:42 None; iw - Infectious Disease History:: Denies. - Social history:: Smoking status: Patient denies any tobacco usage or history of. Screenin:55 [facility] ED Fall Risk Assessment (Adult) History of falling in the last 3 months, iw including since admission No falls in past 3 months (0 pts) Confusion or Disorientation No (0 pts) Intoxicated or Sedated No (0 pts) Impaired Gait No (0 pts) Mobility Assist Device Used No (0 pt) Altered Elimination No (0 pt) Score/Fall Risk Level 0 - 2 = Low Risk Oriented to surroundings, Maintained a safe environment. Abuse screen: Denies threats or abuse. Denies injuries from another. Nutritional screening: No deficits noted. Tuberculosis screening: No symptoms or risk factors identified. Assessment: 08:50 General: Appears in no apparent distress. Behavior is calm, cooperative, appropriate iw for age. Pain: Complains of pain in right trapezius and right mid cervical area. Neuro: Level of Consciousness is awake, alert, obeys commands, Oriented to person, place, time, situation, Moves all extremities. Full function. Cardiovascular: Patient's skin is warm and dry. Respiratory: Respiratory effort is even, Respiratory pattern is regular, symmetrical. Musculoskeletal: Range of motion: limited in right mid cervical area. Vital Signs: 08:42 BP 122 / 79; Pulse 66; Resp 16; Temp 98.4; Pulse Ox 100% on R/A; iw ED Course: 08:34 Patient arrived in ED. al6 08:35 [facility] Cavazos [facility]-C [facility] kb 08:35 Rodri Nieves DO is Attending Physician. kb 08:42 Lucretia Jensen, RN is Primary Nurse. iw 08:42 Triage completed. iw 08:43 Arm band placed on. iw 08:50 Patient has correct armband on for positive identification. iw 08:56 No provider procedures requiring assistance completed. Patient did not have IV access iw during this emergency room visit. Administered Medications: 08:51 Drug: predniSONE PO 40 mg PO once Route: PO; iw 08:56 Follow up: Response: No adverse reaction iw 08:51 Drug: HYDROcodone-acetaminophen PO 5 mg-325 mg 1 tabs PO once Route: PO; iw 08:56 Follow up: Response: No adverse reaction iw Medication: 08:50 VIS not applicable for this client. iw Outcome: 08:41 Discharge ordered by MD. kb 08:56 Discharged to home ambulatory, with family, iw 08:56 Condition: good 08:56 Discharge instructions given to patient, family, Instructed on discharge instructions, follow up and referral plans. medication usage, Demonstrated understanding of instructions, follow-up care, medications, Prescriptions given X 2, 08:57 Patient left the ED. iw Signatures: Daily Cavazos FNP-C FNP-Lucretia Flores, RN RN iw Irish Meredith al6
[2025-07-03 09:28] VITALS: BP 122/79; TEMP 98.4; O2SAT 100
== END 2025-07-03 08:57 | disposition home or self-care (01) ==
LOC: ER 08:32
DX: M54.12 Radiculopathy, cervical region (principal)
CPT/HCPCS: 99283; J7512